=== PATIENT | male | born 1950 | race Caucasian/White ===

== ENCOUNTER → 2016-02-22 | Outpatient (CLI) | payer OTHER ==
[~2016-02-22] MED LIST: HEPARIN 500 UNIT/5 ML SYRINGE FOR CENTRAL LINE IVP ONE
[2016-02-22 14:51] LABS: RDW COEFFICIENT OF VARIATION 20.9 % (11.5-14.5)
[2016-02-22 14:53] LABS: MEAN CORPUSCULAR HEMOGLOBIN 31.9 PG (27-31); MEAN CORPUSCULAR HGB CONC 31.7 g/dL (33-37)
[2016-02-22 15:00] LABS: PROTHROMBIN TIME 10.7 secs (9.7-11.4)
[2016-02-22 15:10] LABS: HEMOGLOBIN 5.1 g/dL (14.0-18.0)
[2016-02-22 15:11] LABS: HEMATOCRIT 16.1 % (42.0-52.0)
[2016-02-22 15:32] LABS: BAND NEUTROPHILS % 0 % (0-10); BASOPHILS % (MANUAL) 1 % (0-1); EOSINOPHILS % (MANUAL) 2 % (0-8); LYMPHOCYTES % (MANUAL) 92 % (10-50); MONOCYTES % (MANUAL) 0 % (0-12); NEUTROPHILS % (MANUAL) 5 % (50-80); WHITE BLOOD COUNT 0.95 10^3/uL (4.8-10.8)
[2016-02-22 15:33] LABS: PLATELET MORPHOLOGY COMMENT NORMAL MORPHOLOGY (NORM)
== END ==
LOC: LAB 13:50
PROVIDERS: ATTEND Internal Medicine
DX: D46.9 Myelodysplastic syndrome, unspecified (principal)
CPT/HCPCS: 85007; 85610; 85730; 86850; 86900; 86901; 86922; P9016

== ENCOUNTER → 2016-03-07 | Outpatient (CLI) | payer OTHER ==
[2016-03-07 14:17] LABS: HEMATOCRIT 23.4 % (42.0-52.0); HEMOGLOBIN 7.5 g/dL (14.0-18.0); MEAN CORPUSCULAR HEMOGLOBIN 32.1 PG (27-31); MEAN CORPUSCULAR HGB CONC 32.1 g/dL (33-37); RED BLOOD COUNT 2.34 10^6/uL (4.70-6.10); WHITE BLOOD COUNT 1.51 10^3/uL (4.8-10.8)
[2016-03-07 15:47] LABS: PLATELET MORPHOLOGY COMMENT SEE COMMENTS (NORM)
[2016-03-07 15:48] LABS: BAND NEUTROPHILS % 6 % (0-10); BASOPHILS % (MANUAL) 0 % (0-1); EOSINOPHILS % (MANUAL) 2 % (0-8); LYMPHOCYTES % (MANUAL) 65 % (10-50); METAMYELOCYTES % 0 %; MONOCYTES % (MANUAL) 4 % (0-12); MYELOCYTES % 0 %; NEUTROPHILS % (MANUAL) 23 % (50-80); PROMYELOCYTES % 0 %
== END ==
LOC: LAB 13:54
PROVIDERS: ATTEND Internal Medicine
DX: D46.9 Myelodysplastic syndrome, unspecified (principal)
CPT/HCPCS: 85007

== ENCOUNTER → 2016-03-15 | Outpatient (CLI) | payer OTHER | LOC: MMPC 11:11 | DX: I73.9 Peripheral vascular disease, unspecified (principal); R60.9 Edema, unspecified; E55.9 Vitamin D deficiency, unspecified; K63.5 Polyp of colon; J44.9 Chronic obstructive pulmonary disease, unspecified; D46.9 Myelodysplastic syndrome, unspecified | CPT/HCPCS: 99213; G0463 ==

== ENCOUNTER → 2016-03-16 | Outpatient (CLI) | payer OTHER ==
[2016-03-16 09:38] LABS: BASOPHILS # (AUTO) 0.02 10*3/UL; BASOPHILS % (AUTO) 1.1 % (0-1); EOSINOPHILS % (AUTO) 0.6 % (0-8); HEMATOCRIT 25.9 % (42.0-52.0); HEMOGLOBIN 7.7 g/dL (14.0-18.0); IMM GRAN % (AUTO) 0 % (0-5); IMM GRAN# (AUTO) 0 10*3/UL; LYMPHOCYTES # (AUTO) 0.75 10*3/uL; LYMPHOCYTES % (AUTO) 41.9 % (10-50); MEAN CORPUSCULAR HGB CONC 29.7 g/dL (33-37); MONOCYTES % (AUTO) 11.2 % (5-15); NEUTROPHILS # (AUTO) 0.81 10*3/UL; NEUTROPHILS % (AUTO) 45.2 % (50-80); RDW COEFFICIENT OF VARIATION 19.4 % (11.5-14.5); RED BLOOD COUNT 2.48 10^6/uL (4.70-6.10); WHITE BLOOD COUNT 1.79 10^3/uL (4.8-10.8)
[2016-03-16 10:31] LABS: PLATELET MORPHOLOGY COMMENT SEE COMMENTS (NORM)
[2016-03-16 10:32] LABS: ASPARTATE AMINO TRANSFERASE 17 IU/L (21-57); BILIRUBIN,TOTAL 0.5 mg/dL (0.3-1.2); BLOOD UREA NITROGEN 22 mg/dL (7-22); CALCIUM 8.9 mg/dL (8.7-10.7); CHLORIDE 111 meq/L (98-112); EST GLOMERULAR FILTRATION > 60 (>60 ml/min/1.73m(2)); GLUCOSE 65 mg/dL (78-110); POTASSIUM 3.8 meq/L (3.8-5.2); SODIUM 142 meq/L (135-145); TOTAL PROTEIN 6.2 g/dL (6.1-8.0)
== END ==
LOC: LAB 09:17
PROVIDERS: ATTEND Internal Medicine
DX: D46.9 Myelodysplastic syndrome, unspecified (principal)
CPT/HCPCS: 36415; 80053; 85025

== ENCOUNTER → 2016-03-28 | Outpatient (CLI) | payer OTHER ==
[2016-03-28 13:43] LABS: BASOPHILS # (AUTO) 0.01 10*3/UL; BASOPHILS % (AUTO) 0.6 % (0-1); EOSINOPHILS % (AUTO) 1.7 % (0-8); HEMATOCRIT 26.1 % (42.0-52.0); HEMOGLOBIN 8.1 g/dL (14.0-18.0); IMM GRAN % (AUTO) 0 % (0-5); IMM GRAN# (AUTO) 0 10*3/UL; LYMPHOCYTES # (AUTO) 1.03 10*3/uL; LYMPHOCYTES % (AUTO) 58.2 % (10-50); MONOCYTES # (AUTO) 0.07 10*3/UL (0.3-0.8); NEUTROPHILS # (AUTO) 0.63 10*3/UL; NEUTROPHILS % (AUTO) 35.5 % (50-80); RDW COEFFICIENT OF VARIATION 19.3 % (11.5-14.5); RED BLOOD COUNT 2.61 10^6/uL (4.70-6.10); WHITE BLOOD COUNT 1.77 10^3/uL (4.8-10.8)
[2016-03-28 13:48] LABS: PLATELET MORPHOLOGY COMMENT SEE COMMENTS (NORM)
== END ==
LOC: LAB 13:24
PROVIDERS: ATTEND Internal Medicine
DX: D46.9 Myelodysplastic syndrome, unspecified (principal)
CPT/HCPCS: 36415; 85025

== ENCOUNTER → 2016-04-12 | Outpatient (CLI) | payer OTHER | LOC: MMPC 09:00 | DX: I73.9 Peripheral vascular disease, unspecified (principal); H40.9 Unspecified glaucoma; E55.9 Vitamin D deficiency, unspecified; D46.9 Myelodysplastic syndrome, unspecified; I48.91 Unspecified atrial fibrillation; Z86.010 Personal history of colon polyps | CPT/HCPCS: 99213; G0463 ==

== ENCOUNTER 2016-05-08 10:23 | Emergency (ER) | payer OTHER ==
[2016-05-08] MEDS ORDERED: NORMAL SALINE 10 ML SYRINGE FLUSH IVP PRN (10:30)
[2016-05-08] MEDS ORDERED: Sodium Chloride 0.9% 1,000 ML PRIMARY IV ONE (10:30)
--- NOTE | 2016-05-08 10:40 | EKG ---
[address] [address] Measurements Intervals [place] Rate: 126 P: LA: 362 QRS: 44 QRSD: 88 T: 78 QT: 335 QTc: 410 Interpretive Statements PROBABLE SINUS TACHYCARDIA WITH OCCASSIONAL PACs POSSIBLE RIGHT VENTRICULAR CONDUCTION DELAY NONSPECIFIC ST & T-WAVE ABNORMALITY ABNORMAL RHYTHM ECG MARKED MAKES INTERPRETATION DIFFICULT ARTIFACT SUGGEST REPEAT STUDY Compared to ECG 06/21/2015 15:44:33 T-wave abnormality now present Electronically Signed On 05-08-16 13:34:04 MDT by Ramu Oakes [id number]
[2016-05-08 10:50] LABS: HEMATOCRIT 23.1 % (42.0-52.0); HEMOGLOBIN 7.2 g/dL (14.0-18.0); MEAN CORPUSCULAR HEMOGLOBIN 29.6 PG (27-31); MEAN CORPUSCULAR HGB CONC 31.2 g/dL (33-37); MEAN PLATELET VOLUME 12.6 FL (7.4-12.2); RED BLOOD COUNT 2.43 10^6/uL (4.70-6.10)
--- NOTE | 2016-05-08 10:54 | PDOC ---
General Adult HPI - General Chief Complaint: General Medical Stated Complaint: LETHARGIC, ALTERED MENTAL STATUS Date Seen by Provider: 05/08/16 Time Seen by Provider: 10:25 Source: POSITIVE: Patient, Spouse, EMS Exam Limitations: POSITIVE: No limitations, Clinical condition Nurse's Notes Reviewed & Considered: Yes EMS Report Reviewed & Considered: Verbal - History of Present Illness Initial Comment: The patient is a 65-year-old male who has a history of myelodysplastic syndrome as well as left leg amputation. He is brought to the emergency department by ambulance with increased weakness and lethargy. His states that over the past several days he's had increased weakness and fatigue. Last night he was having some shaking chills and she thinks that he may have been running a fever. She states that he has not received any chemotherapy for his myelodysplastic syndrome for the past 2 or 3 months as this has been on hold because of his clinical condition. In addition he has been treated for chronic infection at the site of his left leg amputation off-and-on with IV antibiotics. He finished a course of antibiotics 2 weeks ago and is scheduled to see the infectious disease doctors later this week in [place]. In addition he has developed some weeping wounds on his right leg which have been wrapped a couple of times in physical therapy. When EMS arrived his initial blood pressure was in the 90s to 100s systolic. During my initial assessment the patient did mention he had a little bit of pain in his left upper chest intermittently. He is also complaining of pain in primarily in his left leg at the area of the previous amputation. The patient does receive blood transfusions fairly regularly and his last transfusion was about 2 weeks ago. Have you received a tetanus shot in the past 10 years?: Unknown - Patient Home Medications Home Medications: Home Medications Bimatoprost [Lumigan] 1 drop OP QD drop 03/08/12 Brimonidine Tartrate [Alphagan P] 1 drop OP TID drop 03/08/12 Dorzolamide HCl 1 drop OP TID drop 03/08/12 Timolol [Betimol] 1 drop OP BID drop 03/08/12 Ibuprofen [Motrin] 1 tab PO QID PRN #120 10/31/13 Multivitamin [Multivitamins] 1 cap PO QD #30 cap 08/10/15 Aspirin 1 tab PO QD #30 tab 08/15/16 Cholecalciferol (Vitamin D3) [Vitamin D3] 1 tab PO QD #30 tab 10/05/15 Docusate Sodium [Colace] 1 tab PO QOD #60 cap 10/05/15 Oxycodone HCl/Acetaminophen [Oxycodone-Acetaminophen 10-325] 1 tab PO Q6H PRN # 120 tab 10/14/15 Ondansetron [Zofran Odt] 4 mg PO TID #10 tab 10/29/15 Furosemide 1 tab PO DAILY #30 tab 03/15/16 Potassium Chloride [Klor-Con M20] 20 meq PO DAILY #30 tab 03/15/16 Gabapentin 3 cap PO TID #270 cap 05/06/16 - Patient Allergies Allergies/Adverse Reactions: Allergies Allergy/AdvReac Type Severity Reaction Status Date / Time No Known Drug Allergies Allergy NOT Verified 04/27/16 12:04 APPLICABLE Past Medical History - heen HEENT History: Glaucoma, Cataracts, Dentures/Partials Additional HEENT History: 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 DENTURES UPPERS AND LOWERS Cardiovascular History: PVD Additional Cardiovasular History: HAD ENDARTERECTOMY AND STENTS 2007 GROIN. FEM FEM BYPASS AND LEFT FEM POP BYPASS IN 2016 WITH SUBSUQUENT LEFT BKA AND AKA REVISION Respiratory History: Snoring Gastrointestinal History: Denies History Genitourinary History: Denies History Endocrine History: Denies History Musculoskeletal History: Arthritis, Back Injury, Osteoarthritis Prosthesis or Implant: Yes (STENTS/NERVE STIMULATOR) Additional Musculoskeletal History: SCOLIOSIS Neurological History: Denies History Blood Disorders: Denies History Psychiatric History: Denies History History of Sexually Transmitted Diseases: No Cancer History: Other (please comment) Cancer Treatment / Date(s) of Treatment: 2007 History of MDRO: No History of Other Communicable Diseases: No Alcohol Use: None Substance Use Type: None Previous Surgical History: Yes Type / Date of Surgery: ENDARTERECTOMY/ STENTING OF THE LEFT COMMON ILIAC AND LEFT EXTERNAL ILIAC ARTERIES IN 2007/ LEFT CATARACT EXT/ OTHER EYE SURGERY/ TONSILLECTOMY/ STEM CELL TRANSPLANT/COLONSCOPY. SPINAL CORD STIMULATIOR 2016. LEFT ULNAR NERVE RELEASE. FEM FEM BYPASS AND LEFT FEM POP BYPASS IN 2016 WITH SUBSEQUENT LEFT BKA AND AKA REVISION Anesthesia Reactions: No Malignant Hyperthermia: No Significant Family History: Hypertension Past Medical History Reviewed: Reviewed - No Changes ROS - Limitations ROS Limitations: No Limitations Constitution: REPORTS: Chills, Fever Cardiovascular: REPORTS: Chest Pain (He did complain of some left upper chest pain on arrival) Respiratory: DENIES: Cough Non Productive, Cough Productive, Shortness Of Breath Neurological: REPORTS: Confusion, Other (Generalized weakness, family was unable to bring him by private vehicle). DENIES: Headache Gastrointestinal: DENIES: Abdominal Pain, Nausea, Vomitting Endocrine: REPORTS: Fatigue Eyes: REPORTS: Denies Symptoms ENT: REPORTS: Denies Symptoms General Adult Exam - General Appearance General Appearance: POSITIVE: Alert, Other (Patient appears acutely and chronically ill, he is pale) - HEENT HEENT: POSITIVE: Head Inspection Nml, Eyes Inspection Nml, Nose Inspection Nml ( Some clear drainage from his nose), Pharynx Inspect. Nml, Pale Conjunctivae - Neck Neck: POSITIVE: Normal Inspection. NEGATIVE: Lymphadenopathy - Respiratory Respiratory: POSITIVE: No Respiratory Distress, Breath Sounds Normal - Cardiovascular Cardiovascular: POSITIVE: Regular Rate & Rhythm, No Murmur - Abdomen Abdomen: Soft: (All Quadrants), Denies Tenderness: (All Quadrants), No Distention: (All Quadrants) - Skin Skin: POSITIVE: Other (The patient appears pale, he does have multiple bruises on his extremities) - Extremities Additional Extremities Details: Examination the right lower extremity reveals a wrap to the right lower extremity with edema noted, there is an area of erythema extending above the area of the dressing up onto the medial aspect of his left right thigh. He does have a left sided amputation. General Adult Progress - Results Reviewed by me Xrays/CTs/US Reviewed by me: Yes Radiology Findings: Chest x-ray shows no acute infiltrate or any other acute abnormality. Lab Results Reviewed: Yes Lab Results:: Laboratory Results 05/08/16 05/08/16 Range/Units 10:35 10:50 WBC 2.25 L (4.8-10.8) 10^3/uL RBC 2.43 L (4.70-6.10) 10^6/uL Hgb 7.2 L (14.0-18.0) g/dL Hct 23.1 L (42.0-52.0) % MCV 95.1 H (80-90) FL MCH 29.6 (27-31) PG MCHC 31.2 L (33-37) g/dL RDW Std Deviation 59.9 H (39-50) fL RDW Coeff of Luis Miguel 19.5 H (11.5-14.5) % Plt Count 188 (140-350) 10*3/uL MPV 12.6 H (7.4-12.2) FL Neutrophils % (Manual) 24 L (50-80) % Band Neutrophils % 3 (0-10) % Lymphocytes % (Manual) 65 H (10-50) % Monocytes % (Manual) 5 (0-12) % Eosinophils % (Manual) 0 (0-8) % Basophils % (Manual) 0 (0-1) % Metamyelocytes % 7 % Myelocytes % 0 % Promyelocytes % 3 % Blast Cells 0 (0-1) % WBC Morphology Comment See comments (NORM) Plt Morphology Comment See comments (NORM) RBC Morph Comment See comments (NORM) PT 12.1 H (9.7-11.4) secs INR 1.17 (0.00-5.90) N/A VBG pH 7.49 H (7.32-7.42) VBG pCO2 25 L (45-55) mmHg VBG HCO3 19 L (22-26) mmol/L VBG Base Excess -5 L (-2-2) MMOL/L Sodium 137 (135-145) meq/L Potassium 3.7 L (3.8-5.2) meq/L Chloride 105 (98-112) meq/L Carbon Dioxide 20 L (23-33) meq/L Anion Gap 12 (5-20) BUN 27 H (7-22) mg/dL Creatinine 0.8 (0.70-1.50) mg/dL Estimated GFR > 60 (>60 ml/min/1.73m(2)) BUN/Creatinine Ratio 33.75 H (6-20) Glucose 139 H (78-110) mg/dL Calculated Osmolality 290.0 (267-292) mOsm/kg Lactic Acid 1.8 (0.70-2.10) MMOL/L Calcium 9.1 (8.7-10.7) mg/dL Magnesium 1.8 (1.6-2.4) mg/dL Total Bilirubin 1.9 H (0.3-1.2) mg/dL AST 36 (21-57) IU/L ALT 33 (21-72) IU/L Alkaline Phosphatase 105 (38-126) IU/L Troponin I 0.027 (< 0.040) ng/mL C-Reactive Protein 18.6 H (0.0-0.9) mg/dL Total Protein 6.9 (6.1-8.0) g/dL Albumin 3.6 (3.5-4.8) g/dL Globulin 3.3 (2.50-4.10) g/dL Albumin/Globulin Ratio 1.00 L (1.3-2.0) mg/g EKG Interpreted/Reviewed By Me:: Yes EKG Interpretation:: POSITIVE: Normal Sinus Rhythm, Normal Rate, Normal Intervals, Normal QRS, Normal ST/T, Other (EKG is grossly normal however there is significant motion artifact due to patient positioning) - Patient's Progress MDM / ED Course: The patient does have a port and this was accessed. Blood cultures and lactate were obtained with initial blood draw. Venous blood gas was also obtained revealing a normal pH. His temperature was normal initially however on repeat was 99.5. His blood pressure initially was in the 120s systolic and remained in the 1 teens for the most part, he did have one blood pressure measuring 87 systolic. He states that he normally runs low. He was tachycardic with heart rate in the 120s. He did receive a bolus of normal saline. His white count was 2.4 which is up from his normal 1 range. His hemoglobin was 7.2 down from 8.4 last week however up from the sixes prior to his transfusion 2 weeks ago. His lactate was normal. The dressing on the right lower extremity was removed here in the emergency room. He does have weeping open areas to the posterior lower aspect of his leg as well as medial aspect of his lower leg with some surrounding erythema, there is some gap and then erythema extending towards the medial aspect of his upper leg and knee towards the right thigh. There is no drainage amendable to culture. Examination of his left lower extremity reveals an AKA and the dressing is removed revealing a necrotic stump wound with some minimal surrounding induration, no drainage from this. The patient is immune compromised and at significant risk for infections. At this point he appears to have a cellulitis in his right lower extremity. I did discuss the patient with Dr. Lin from infectious disease in [place] who is familiar with the patient. He recommended treatment of his cellulitis with Ancef and [place] [facility] I subsequently discussed the patient with Dr. Jimenez who is the hospitalist here. He felt that the patient would be best served in transferred [place] [facility] I discussed these findings and recommendation with the patient and his family. They were in agreement with being transferred to [place]. I subsequently spoke with Dr. Quintanilla who is a hospitalist at [facility] and he has agreed to accept the patient in transfer. The patient did receive 2 g of Ancef IV prior to discharge. - Consult Counseled: POSITIVE: Patient, Family, RE: Lab Results, RE: Radiology Results, RE : DX Patient Care Time - Estimated PCT Patient Care Time (In Minutes): 50 Vital Signs - Recent Vital Signs Vital Signs: Vital Signs (Last 8 hours) Temp Pulse Resp BP Pulse Ox 05/08/16 12:42 99.5 F 114 H 16 109/74 100 05/08/16 11:32 99.5 F 119 H 16 119/65 100 05/08/16 11:00 119 H 16 87/68 99 05/08/16 10:23 96.8 F 125 H 14 106/70 97 - VS Reviewed Vital Signs Reviewed: Yes Discharge Clinical Impression: Cellulitis of right leg, Peripheral vascular disease, Anemia, Myelodysplastic syndrome Discharge Disposition: Transferred to Tertiary Care Facility Date Decision to Transfer to Another Facility: 05/08/16 Time Decision to Transfer to Another Facility: 12:30
[2016-05-08 10:56] LABS: VENOUS PH 7.49 (7.32-7.42)
[2016-05-08 11:07] LABS: BLOOD UREA NITROGEN 27 mg/dL (7-22); BUN/CREATININE RATIO 33.75 (6-20); CALCIUM 9.1 mg/dL (8.7-10.7); EST GLOMERULAR FILTRATION > 60 (>60 ml/min/1.73m(2)); MAGNESIUM 1.8 mg/dL (1.6-2.4); SERUM ALBUMIN 3.6 g/dL (3.5-4.8)
[2016-05-08 11:19] LABS: C-REACTIVE PROTEIN 18.6 mg/dL (0.0-0.9)
[2016-05-08 11:33] VITALS: RESP 16; TEMP 99.5
[2016-05-08 11:54] LABS: PLATELET MORPHOLOGY COMMENT SEE COMMENTS (NORM); RBC MORPHOLOGY COMMENT SEE COMMENTS (NORM); WBC MORPHOLOGY COMMENT SEE COMMENTS (NORM)
[2016-05-08 11:55] LABS: BAND NEUTROPHILS % 3 % (0-10); BASOPHILS % (MANUAL) 0 % (0-1); EOSINOPHILS % (MANUAL) 0 % (0-8); LYMPHOCYTES % (MANUAL) 65 % (10-50); METAMYELOCYTES % 7 %; MONOCYTES % (MANUAL) 5 % (0-12); MYELOCYTES % 0 %; NEUTROPHILS % (MANUAL) 24 % (50-80)
[2016-05-08 11:56] LABS: PROMYELOCYTES % 3 %
[2016-05-08] MEDS ORDERED: ceFAZolin Inj 2 GM in Sodium Chloride 0.9% 100 ML IV ONE (12:01)
[2016-05-08] MEDS ORDERED: ONDANSETRON 4 MG/2 ML VIAL IVP ONE (12:58)
[2016-05-08] MEDS ORDERED: fentaNYL Inj 100 MCG/2 ML VIAL IVP ONE (12:58)
[2016-05-08 13:33] LABS: BILIRUBIN,URINE SMALL (NEG); CLARITY,URINE CLEAR (CLEAR); COLOR,URINE Other; GLUCOSE, URINE (UA) NEGATIVE (NEG); NITRATE,URINE POSITIVE (NEG); OCCULT BLOOD,URINE MODERATE (NEG); PROTEIN,URINE 100 mg/dl (NEG); UROBILINOGEN,URINE 0.2 EU/dL (0.2)
[2016-05-08 13:40] LABS: URINE SAMPLE TYPE CLEAN CATCH URINE
[2016-05-08 13:41] LABS: BACTERIA,URINE MODERATE; SQUAMOUS EPITHELIAL CELL,UR RARE
--- NOTE | 2016-05-08 18:50 | DI ---
XR CXR 1VW,05/08/2016 10:30 AM: Clinical History: Fever and hypoxia. Previous Exam: November 16, 2015 Findings: A single frontal radiograph of the chest is obtained, and demonstrates a stable right-sided chest por t. Overlying epidural stimulator device is also stable. There are some stable scarring within the lung apices. There is no infiltrate nor effusion. The cardiomediastinum and bony thorax are unremarkable. Impression: No acute disease.
== END 2016-05-08 13:07 | disposition short-term general hospital (02) ==
LOC: ER 10:23
DX: R53.83 Other fatigue (principal); I73.9 Peripheral vascular disease, unspecified; D64.9 Anemia, unspecified; D46.9 Myelodysplastic syndrome, unspecified; L03.115 Cellulitis of right lower limb; Z89.512 Acquired absence of left leg below knee
CPT/HCPCS: 36415; 71010; 80053; 81001; 81003; 82803; 83605; 83735; 84484; 85007; 85610; 86140; 87077; 87088; 87186 ×2; 93005; 93010; 96365; 96375; 99284 ×2; J3010; J0690; J2405; J7050